=== PATIENT | female | born 1975 | race African-American/Black ===

== ENCOUNTER 2020-09-28 13:39 | Emergency (ER) | payer MEDICAID ==
[~2020-09-28] VITALS: Ht 170.2 cm; Wt 73.0 kg
[2020-09-28 15:07] LABS: CLARITY URINE CLOUDY (CLEAR); COLOR URINE YELLOW (YELLOW); KETONES URINE NEGATIVE (NEGATIVE); LEUKOCYTE ESTERASE URINE 2+ (NEGATIVE); NITRITE URINE NEGATIVE (NEGATIVE); OCCULT BLOOD URINE TRACE (NEGATIVE); PH URINE 5.5 (4.5-8.0); PROTEIN URINE TRACE (NEGATIVE); SPECIFIC GRAVITY URINE 1.019 (1.005-1.030); UROBILINOGEN URINE 0.2 E.U./dL (0.2-1.0)
[2020-09-28] MEDS ORDERED: CEPH500T MT (15:37)
[2020-09-28] MEDS ORDERED: CEPHALEXIN 250MG CAPSULE PO NR (15:45)
[2020-09-28 15:46] VITALS: BP 126/81
== END 2020-09-28 16:21 | disposition home or self-care (01) ==
LOC: ER 14:24
DX: N39.0 Urinary tract infection, site not specified (principal)
CPT/HCPCS: 81003; 87077; 87186; 99283